=== PATIENT | female | born 2000 | race Hispanic/Latino ===

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

== ENCOUNTER → 2021-04-23 08:50 | Outpatient (CLI) | payer OTHER, MEDICAID, SELFPAY ==
[2021-04-23 09:20] LABS: COVID19 -Nasal RAPID POSITIVE (Negative)
== END ==
PROVIDERS: PCP Family Medicine; Visit Provider Nurse Practitioner Family
DX: U07.1 COVID-19 (principal); Z20.822 Contact with and (suspected) exposure to COVID-19
CPT/HCPCS: 87635

== ENCOUNTER 2021-05-02 03:53 | Emergency (ER) | payer OTHER, MEDICAID, SELFPAY ==
[2021-05-02] VITALS (9 sets, daily range): BP systolic 133–168; BP diastolic 74–108; PULSE 69–82; RESP 20–24; TEMP 36.6; O2SAT 95–98
--- NOTE | 2021-05-02 04:00 | DI.RAD.S_ITS ---
PROCEDURE: XR CHEST 1V INDICATIONS: shortness of breath, + covid TECHNIQUE: One view of the chest was acquired. COMPARISON: None. FINDINGS: Surgical changes and devices: None. Lungs and pleura: Lungs are clear. No pleural effusions or pneumothorax. Mediastinum: Mediastinal contours appear normal. Heart size is normal. Bones and chest wall: No suspicious bony lesions. Overlying soft tissues appear unremarkable. IMPRESSION: No acute cardiopulmonary disease process. Dictated by: Shy Cardoso MD, PhD on 05/02/2021 at 7:55 Approved by: Shy Cardoso MD, PhD on 05/02/2021 at 7:55
--- NOTE | 2021-05-02 04:20 | ED_ITS ---
HPI - SOB/Dyspnea General Chief Complaint: Upper Respiratory Symptoms Stated Complaint: trouble breathing Time Seen by Provider: 05/02/21 04:00 Source: patient Mode of arrival: Ambulatory Limitations: no limitations History of Present Illness HPI Narrative: This is a 21-year-old female comes emergency department with known COVID for approximately 2 weeks. Patient states she started feeling more short of breath in the last 24-48 hours. She has been afebrile. She has had a little bit of a cough but states she has really been doing this herself to try to open up her airways. She states it feels tight in her chest. She denies pain but does feel uncomfortable. She has been trying this it more upright overnight to see if that makes her feel better. Patient denies any active nausea or vomiting. No diarrhea constipation. She had some nasal congestion which is 1 of last symptoms to show up for her. She denies any new swelling in her extremities. She does have a Nexplanon in place and recently did a month trial of dextroamphetamine but completed this and has to follow-up with her primary care physician before she takes any additional. She is unsure if she had an asthma history as a child but states she did have an inhaler at some point. She has a family history with her father. No tobacco use but she does use marijuana. Patient is vaccinated she received her vaccines in September. Related Data Home Medications Medication Instructions Recorded Confirmed etonogestrel 68 mg subdermal SUBDERMAL 03/02/20 04/23/21 implant (Nexplanon) Previous Rx's Medication Instructions Recorded dextroamphetamine 10 mg tablet 10 mg PO DAILY #30 tab 04/01/21 prednisone 20 mg tablet 40 mg PO DAILY #6 tab 05/02/21 Allergies Allergy/AdvReac Type Severity Reaction Status Date / Time No Known Drug Allergies Allergy Verified 11/23/20 14:57 Review of Systems Review of Systems ROS Unobtainable: All systems reviewed & are unremarkable except as noted in HPI and below Patient History Medical History No significant medical problems Social History Smoking Status: Never smoker Smoking Status: Never smoker Exam Narrative Exam Narrative: GEN: well nourished, well appearing female, alert and oriented x 3, patient appears to be in mild distress. HEENT: Atraumatic, pupils are equal round reactive to light, extraocular movements are intact, positive for nasal congestion. HEART: Regular rate and rhythm without murmur, clicks, rubs. LUNGS:Lungs patient has bilateral expiratory and inspiratory wheeze, no rales, crackles, chest moves symmetrically, no tachypnea accessory muscle use. Patient speaks in full sentences. ABD:bowel sounds normal, soft, non-tender, no guarding, rebound, rigidity, no masses noted, no hepatosplenomegaly :No CVA tenderness MSCL: Non-tender, swelling bilateral lower extremities, full range of motion, n ormal gait NEURO:CN 2-12 intact, sensation normal SKIN: No rashes, erythema or other skin changes noted. Initial Vital Signs Initial Vital Signs: Vital Signs Temperature 97.9 F 05/02/21 04:00 Pulse Rate 70 05/02/21 04:00 Respiratory Rate 24 05/02/21 04:00 Blood Pressure 168/108 H 05/02/21 04:00 Pulse Oximetry 98 05/02/21 04:00 Course Orders Ordered: ED Orders 05/02/21 04:00 XR chest 1V Stat Discontinued Medications Albuterol (Albuterol Hfa Prepack) 1 box MISC SEEINSTR ONE Stop: 05/02/21 04:33 Last Admin: 05/02/21 04:56 Dose: 1 box Documented by: Prednisone (Prednisone 20 Mg Tablet) 60 mg PO NOW ONE Stop: 05/02/21 05:18 Last Admin: 05/02/21 05:22 Dose: 60 mg Documented by: Reevaluation(s) Reevaluation #1: Recheck after MDI inhaler was given. Patient does have improvement of aeration, her inspiratory wheeze has resolved, but not resolution of her expiratory wheeze. Patient states she feels much better. Time: 05:55 Vital Signs Vital signs: Vital Signs - 8 hr 05/02/21 04:00 05/02/21 04:14 05/02/21 04:21 Temperature 97.9 F Pulse Rate 70 78 74 Respiratory Rate 24 Blood Pressure 168/108 H 158/91 H Pulse Oximetry 98 95 98 05/02/21 04:30 05/02/21 04:31 05/02/21 04:56 Temperature Pulse Rate 82 69 72 Respiratory Rate 20 Blood Pressure 133/77 Pulse Oximetry 97 96 95 05/02/21 05:00 05/02/21 05:30 05/02/21 05:31 Temperature Pulse Rate 76 72 71 Respiratory Rate Blood Pressure 152/96 H 158/74 H Pulse Oximetry 97 97 96 MDM - SOB/Dyspnea Imaging Data Chest x-ray: Radiologist's Impression: No acute cardiopulmonary abnormality identified. [facility] Narrative Medical decision making narrative: This is a 21-year-old female who is and a 10- 14 day range of COVID infection with known positive test outside the facility. Patient started feeling more short of breath the last several days. A remote history of asthma or reactive airway as a child using albuterol. Patient states she has not used in many years. She is wheezy on exam. Her oxygen saturation is normal she is slightly hypertensive but not tachypneic. Chest x-ray negative patient was given albuterol MDI here and re-evaluated patient is much improved. Discussed with patient feels she may benefit from a short course of steroids in terms of reactive airway disease. She was discharged home with the albuterol MDI. She has a spacer in is a teaching from respiratory therapy as well. Return precautions discussed. All questions answered. Discharge Plan Departure Patient Disposition: Home Clinical Impression: COVID-19 virus infection, Reactive airway disease Instructions: DI for Reactive Airway Disease-Adult, DI for COVID-19 (Suspected or Confirmed ) Activity Restrictions/Additional Instructions: Your x-ray today is negative for pneumonia. You are wheezy on exam and likely have some reactive airway secondary to your COVID infection. You may use albuterol 4-8 puffs every 4 hours as needed. Steroids are not typically recommended with COVID infections if you have a normal oxygen level but it may be helpful to you. Take steroids daily until gone. A prescription was sent to [facility] in [place]. Please return for new or worsening shortness of breath, lightheadedness or passing out, chest pain or pressure, persistent vomiting, diaphoresis or sweatiness, new swelling in her extremities or other new or concerning symptoms. Prescriptions: New prednisone 20 mg tablet 40 mg PO DAILY Qty: 6 RF: 0 No Action Nexplanon 68 mg implant subdermal RF: 0 dextroamphetamine 10 mg tablet 10 mg PO DAILY Qty: 30 RF: 0 Referrals: Ana Sifuentes MD [Primary Care Provider] -
[2021-05-02] MEDS: ALBUTEROL HFA PREPACK 1 BOX MISC (04:56)
[2021-05-02] MEDS: predniSONE 20 MG TABLET 60 MG PO (05:22)
== END 2021-05-02 05:58 | disposition home or self-care (01) ==
PROVIDERS: Emergency Provider Emergency Medicine; PCP Family Medicine
DX: U07.1 COVID-19 (principal); J45.909 Unspecified asthma, uncomplicated
CPT/HCPCS: 71045; 94640; 99283

== ENCOUNTER → 2021-07-09 15:19 | Outpatient (CLI) | payer OTHER, MEDICAID, SELFPAY ==
--- NOTE | 2021-07-09 15:35 | DI.CT.S_ITS ---
PROCEDURE: CT SINUS SCREEN WO CON INDICATIONS: Other specified disorders of nose and nasal sinus TECHNIQUE: Noncontrast 3.0 mm axial images acquired from the frontal sinuses to the mid-sella, with coronal and sagittal reformats. For radiation dose reduction, the following was used: automated exposure control, adjustment of mA and/or kV according to patient size. BB marker is noted on the right cheek COMPARISON: None. FINDINGS: Image quality: Excellent. Maxillary Sinuses: Near complete opacification of the left maxillary sinus. Retention cysts are noted on the right. There is obstruction of the left ostiomeatal unit egress tract. The right OMU is clear. Ethmoid Air Cells: No bony remodeling or destruction. Sinuses are clear. Sphenoid Sinuses: No bony remodeling or destruction. Sinuses are clear. Frontal Sinuses: No bony remodeling or destruction. Sinuses are clear. Ostiomeatal Complexes: As above. No Jordi cells. Miscellaneous: Visualized intra-orbital contents are normal. No martina bullosa or paradoxical turbinate curvature. No nasal septal deviation. BB marker corresponds with an accessory parotid lobe. Small incidental intraparotid right-sided lymph node noted as well. IMPRESSION: 1. Debris and air-fluid level in the left maxillary sinus and may reflect acute sinusitis. Right maxillary sinus retention cysts noted. 2. Left ostiomeatal unit is obstructed as well. No osseous expansion or sclerosis. 3. BB marker on the right cheek corresponds with an accessory parotid lobe. Approved by: Radu Cabezas M.D. on 07/09/2021 at 16:24
== END ==
PROVIDERS: PCP Family Medicine; Referring Provider Otolaryngology; Visit Provider Otolaryngology
DX: J34.89 Other specified disorders of nose and nasal sinuses (principal); J34.1 Cyst and mucocele of nose and nasal sinus
CPT/HCPCS: 70486

== ENCOUNTER → 2021-11-28 08:13 | Outpatient (CLI) | payer OTHER, MEDICAID, SELFPAY ==
[2021-11-28 11:01] LABS: Hemoglobin A1C% w Est Avg Glu 5.3 % (4.0-6.0)
[2021-11-28 11:39] LABS: Testosterone 56.3 ng/dL (5.71-77.0)
[2021-11-29 07:36] LABS: Insulin Level Total 18.6 uIU/mL (2.6-24.9)
== END ==
PROVIDERS: PCP Family Medicine; Referring Provider Family Medicine; Visit Provider Family Medicine
DX: E28.2 Polycystic ovarian syndrome (principal)
CPT/HCPCS: 36415; 83036; 83498; 83525; 84403

== ENCOUNTER → 2022-03-27 08:19 | Outpatient (CLI) | payer OTHER, MEDICAID, SELFPAY ==
--- NOTE | 2022-03-27 08:21 | DI.CT.S_ITS ---
PROCEDURE: CT SINUS SCREEN WO CON INDICATIONS: Chronic pansinusitis TECHNIQUE: Noncontrast 3.0 mm axial images acquired from the frontal sinuses to the mid-sella, with coronal and sagittal reformats. For radiation dose reduction, the following was used: automated exposure control, adjustment of mA and/or kV according to patient size. COMPARISON: [facility], CT, CT SINUS SCREEN WO CON, 07/09/2021, 15:30. FINDINGS: Image quality: Excellent. Sinuses: Mucous retention cyst versus polyps are present within the maxillary sinuses bilaterally. Mild mucosal thickening is present within the left maxillary sinus as well as minimally within the ethmoid air cells as well as left sphenoid sinus. No fluid levels are identified. Ostiomeatal Complexes: Ostiomeatal complexes are patent. However, there is leftward narrowing secondary to septal deviation. Miscellaneous: Visualized intra-orbital contents are normal. No martina bullosa or paradoxical turbinate curvature. Leftward nasal septal deviation with septal spur there is atrophy of the middle turbinates as well as asymmetric hypertrophy of the left inferior turbinate.. IMPRESSION: Minimal to mild scattered mucosal thickening with mucous retention cyst versus polyps. No fluid levels. Prominent left nasal septal deviation causing narrowing of the left ostiomeatal complex. Dictated by: Bee Ramos M.D. on 03/27/2022 at 11:54 Approved by: Bee Ramos M.D. on 03/27/2022 at 12:03
== END ==
PROVIDERS: PCP Family Medicine; Referring Provider Otolaryngology; Visit Provider Otolaryngology
DX: J32.4 Chronic pansinusitis (principal); J34.2 Deviated nasal septum
CPT/HCPCS: 70486

== ENCOUNTER → 2022-04-15 10:58 | Outpatient (CLI) | payer OTHER, MEDICAID, SELFPAY ==
--- NOTE | 2022-04-15 11:03 | DI.RAD.S_ITS ---
PROCEDURE: XR ANKLE RT MIN 3V INDICATIONS: right ankle injury - tender lateral malleolus TECHNIQUE: 3 views of the ankle were acquired. COMPARISON: None. FINDINGS: Bones: No fractures or dislocations. Ankle mortise is normally aligned. No suspicious bony lesions. Soft tissues: No tibiotalar joint effusion. Achilles tendon appears normal. IMPRESSION: No visualized acute fracture or dislocation. However, if clinical concern and/or pain persist, short interval imaging followup in 7-10 days is recommended, as occult injury cannot be definitively excluded. Dictated by: Bee Ramos M.D. on 04/15/2022 at 11:38 Approved by: Bee Ramos M.D. on 04/15/2022 at 11:39
== END ==
PROVIDERS: PCP Family Medicine; Referring Provider Registered Nurse; Visit Provider Registered Nurse
DX: M25.571 Pain in right ankle and joints of right foot (principal)
CPT/HCPCS: 73610

== ENCOUNTER → 2022-07-29 13:48 | Outpatient (ROUT) | payer OTHER, MEDICAID, SELFPAY ==
[2022-07-29 15:01] LABS: COVID-19 CEPHEID PCR (VTM/NP) Negative (Negative)
== END ==
PROVIDERS: PCP Family Medicine; Visit Provider Otolaryngology
DX: Z20.822 Contact with and (suspected) exposure to COVID-19 (principal)
CPT/HCPCS: U0003; U0005

== ENCOUNTER 2022-07-31 09:59 | Day surgery (SDC) | payer OTHER, MEDICAID, SELFPAY ==
[2022-07-29 15:21] VITALS: BMI 35.9
[2022-07-31] VITALS (11 sets, daily range): BP systolic 127–174; BP diastolic 82–117; PULSE 71–113; RESP 14–86; TEMP 35.9–36.6; O2SAT 91–98; BMI 35.9
--- NOTE | 2022-07-31 10:34 | PM.PREOP ---
Pre-operative Note Interval Note History & Physical reviewed/Exam performed by Physician: Yes Changes to H&P: No
--- NOTE | 2022-07-31 10:35 | PM.HP.1 ---
History of Present Illness History of Present Illness Date Patient Seen: 07/31/22 Time Patient Seen: 10:35 Chief complaint: SEPTOPLASTY Narrative: 22-year-old female last seen in clinic 04/23/2022 for chronic sinusitis septal deviation nasal obstruction turbinate hypertrophy and RONNA, presents for septoplasty, turbinate reduction, and anterior endoscopic sinus surgery. No interval health changes, she wishes to proceed. 3+ left septal deviation including mid to posterior severe spur. Patient History Medical History Anxiety Attention deficit hyperactivity disorder (ADHD) Chronic pansinusitis COVID-19 virus infection (04/23/21) HTN (hypertension) Nasal obstruction Nasal septal deviation Nasal turbinate hypertrophy No significant medical problems Obstructive sleep apnea (adult) (pediatric) RONNA (obstructive sleep apnea) Other headache syndrome Family & Social History Tobacco & Substance use: Smoking Status Never smoker Substance Use Type marijuana Meds Home Medications and Allergies Home Medications Medication Instructions Recorded Confirmed Type norethindrone acetate 1 mg-ethinyl 1 tab PO DAILY #63 tabs 05/30/22 07/31/22 Rx estradiol 20 mcg tablet (Loestrin) albuterol sulfate 90 mcg/actuation 2 puff inhalation Q4-6H PRN 06/26/22 07/31/22 Rx aerosol inhaler (ProAir HFA) shortness of breath or wheezing #8.5 grams lisdexamfetamine 40 mg capsule 40 mg PO QAM #30 caps 06/27/22 07/31/22 Rx Allergies Allergy/AdvReac Type Severity Reaction Status Date / Time No Known Drug Allergies Allergy Verified 05/30/22 11:40 Review of Systems Review of Systems Narrative: Negative except as listed in the HPI Exam Narrative Exam Narrative: Well-developed female with elevated BMI, heart regular rate and rhythm without murmur, lungs clear to auscultation bilaterally Assessment & Plan Assessment & Plan narrative: Assessment: Chronic sinusitis, septal deviation, nasal airway obstruction, inferior turbinate hypertrophy, mild RONNA Plan: Following discussion of the material risks benefits complications and alternatives, the patient elected to proceed with the above surgeries as outpatient. Time Spent With Patient Critical Care time: I spent a total of [] minutes of critical care time on this patient's care today; this time is exclusive of procedural time.
--- NOTE | 2022-07-31 10:37 | P.OP_ITS ---
Operative Date/Time/Diagnoses Date of procedure: 07/31/22 Time of procedure: 13:12 Pre-op diagnosis: Chronic sinusitis, septal deviation, nasal airway obstruction, inferior turbinate hypertrophy, RONNA Post-op diagnosis: same Procedure & Clinicians Procedure: 1. Bilateral endoscopic maxillary antrostomy 2. Bilateral endoscopic anterior ethmoidectomy 3. Septoplasty 4. Bilateral inferior turbinate reduction via intra mural cautery Same procedure as scheduled: Yes Indications: 22-year-old female with the above diagnoses incompletely managed with medical therapy presents for the above procedures. Following discussion of the material risks benefits complications and alternatives, she elected to proceed. Surgeon: Rik Rushing Click Yes if Unassisted: Yes Anesthesia Type: General and Local Operative Notes Findings: 3+ left septal deviation including large septal spur, isolated LEFT flap perforation in that area, RIGHT flap intact. Partial bilateral middle turbinate resection to improve airway and decrease risk of lateralization. Some thick mucus RIGHT maxillary, bilateral atypical anatomy with very lateral antrostomies, difficult access even with the 30degree scope. Estimated Blood Loss (mL): 110 Procedure in detail: Following identification and confirmation of consent as well as preoperative Afrin nasal spray, the patient was brought to the operating room suite and placed in the supine position. General endotracheal anesthesia was administered. I infiltrated the septum widely bilaterally with 1% lidocaine 1 100,000 epinephrine followed by temporary packing with cotton with Afrin and 4% lidocaine. Following sterile prep and drape, the packing was removed and I performed a right manpreet-transfixion incision, elevated the right mucoperichondrial and mucoperiosteal flap. I disarticulated near the bony/cartilaginous junction and elevated the left mucoperiosteal flap. Deviated portions of the perpendicular plate of the ethmoid and vomer were resected. The residual quadrilateral cartilage was further straightened by partially trimming it inferiorly as well as reducing the maxillary crest. A 2 mm strip of cartilage paralleling the residual 1 cm dorsal and caudal strut was resected to further straighten the quadrilateral cartilage. The hemitransfixion incision was closed with interrupted 5 0 chromic followed by a running 4 0 plain gut mattress suture to reapproximate the septal flaps. The head of each inferior turbinate had been previously infiltrated with additional local anesthetic and a 25 gauge spinal needle was used to impale the length of the turbinate, with cautery on a setting of 15 activated on slow withdrawal over 2 passes each side. The turbinates were then outfractured. Under endoscopic guidance the posterior and anterior superior insertion of each middle turbinate was then infiltrated with additional local anesthetic via spinal needle, and each middle meatus was packed with epi 1:1000 small pledgets for up to 10min. Beginning on the left side, the middle turbinate was slightly medialized and the uncinate process was identified with uncinectomy performed via the backbiting forceps and the microdebrider, difficult access as above. The natural os of the maxillary sinus was eventually identified and enlarged posteriorly and inferiorly with forceps and the microdebrider. Anterior ethmoidectomy was performed by removing the ethmoid bulla with the microdebrider. This procedure was repeated on the right side with identical findings. Each middle turbinate was partially resected with turbinate scissors, forceps, with cautery of the free residual edges with suction cautery on a setting of 10. At case completion, 20/1000th of an inch silastic splints were placed bilaterally, sutured anteriorly with a single 4 0 nylon. The procedure completed, sponge and needle counts were correct and the patient was extubated in the operating room and taken to recovery room in stable condition without known complication. Complications: none Post-operative Condition: stable Disposition: same day surgery Plan for aftercare: Nasal saline every hour while awake, begin irrigations t.i.d. tomorrow. Polysporin to the nostrils at all times, Tylenol alternating with Advil for pain control, oxycodone for breakthrough pain. Elevate head of bed, no nose blowing, no straining for 2 weeks. Ice directly under the nose on the upper lip has tolerated 24-48 hours at a minimum. Follow-up in 1 week for nasal splint removal.
[2022-07-31] MEDS: LACTATED RINGERS 1,000 ML 42 ML IV (10:40)
[2022-07-31] MEDS: OXYMETAZOLINE NASAL SPRAY 15 ML 2 SPRAYS NASAL ×2 (10:53→11:31)
--- NOTE | 2022-07-31 11:25 | SUR.OPER ---
Supine on padded OR bed, head on pillow, arms padded and tucked at sides, legs uncrossed, safety belt at thigh, tape over blanket over lower legs .
[2022-07-31] MEDS: EPINEPHrine 1 MG/ML 3 MG TOP (11:38)
[2022-07-31] MEDS: LIDOCAINE 2% W/EPI INJ 20 ML INJ (11:38)
[2022-07-31] MEDS: BACITRACIN OINT 0.9 GM PCKT 1 APPLIC TOP (11:39)
[2022-07-31] MEDS: ACETAMINOPHEN IV 1,000 MG/100 ML VIAL 400 MG IV (11:42)
[2022-07-31] MEDS: LIDOCAINE 4% SOLN 50 ML 20 ML TOP (11:45)
[2022-07-31] MEDS: HYDROMORPHONE 2 MG INJ IV (13:57)
[2022-07-31] MEDS: ONDANSETRON 4 MG/2 ML INJ IV ×2 (14:01→15:24)
[2022-07-31] MEDS: OXYCODONE IR 5 MG TABLET PO ×2 (14:30→15:23)
== END 2022-07-31 15:55 | disposition home or self-care (01) ==
PROVIDERS: PCP Family Medicine; Referring Provider Otolaryngology; Visit Provider Otolaryngology
PROC: (CPT 30520; principal; 2022-07-31 11:00)
PROC: (CPT 31231; 2022-07-31 11:00)
DX: J32.4 Chronic pansinusitis (principal); J34.2 Deviated nasal septum; J34.3 Hypertrophy of nasal turbinates; G47.33 Obstructive sleep apnea (adult) (pediatric); J98.8 Other specified respiratory disorders
CPT/HCPCS: 31254; 31256; 30520; 30802; A9270; J0131; J0171; J1100; J1170; J2250; J2405; J2704; J3010

== ENCOUNTER → 2022-09-01 17:30 | Outpatient (CLI) | payer OTHER, MEDICAID, SELFPAY | PROVIDERS: PCP Family Medicine; Visit Provider Nurse Practitioner Family | DX: J02.9 Acute pharyngitis, unspecified (principal) | CPT/HCPCS: 87070; 87077; 87147 ==

== ENCOUNTER 2022-09-25 19:44 | Emergency (ER) | payer OTHER, MEDICAID, SELFPAY ==
[2022-09-25 19:50] VITALS: BP 157/89; PULSE 98; RESP 18; TEMP 36.8; O2SAT 98; BMI 36.0
[2022-09-25 22:20] VITALS: PULSE 84; O2SAT 97
[2022-09-25 22:30] VITALS: BP 145/87; PULSE 81; O2SAT 97
[2022-09-25 22:45] VITALS: BP 132/80; PULSE 80; O2SAT 97
--- NOTE | 2022-09-25 22:56 | ED_ITS ---
HPI - URI/Sore Throat General Chief Complaint: Upper Respiratory Symptoms Stated Complaint: Swollen tonsils Time Seen by Provider: 09/25/22 19:45 Source: patient Mode of arrival: Ambulatory History of Present Illness HPI Narrative: 22-year-old female nonsmoker with history of hypertension and sleep apnea as well as ADHD presents with a chief complaint of tonsillar swelling. She states that she had rather classic symptoms of sore throat and strep a few weeks ago including fever, sore throat, swollen tonsils, with redness and exudate. She was diagnosed with strep C and had been on antibiotics. She states that she no longer has throat pain or fever but that her tonsils continued to be swollen. She has a rather impressive amount of runny nose, nasal secretions. She denies any trouble swallowing or breathing. She is most concerned that her tonsils are still swollen. She is not been taking any [id number] medications. She denies any chest pain or shortness of breath. She is had no nausea, vomiting or diarrhea Related Data Previous Rx's Medication Instructions Recorded norethindrone acetate 1 mg-ethinyl 1 tab PO DAILY #63 tabs 05/30/22 estradiol 20 mcg tablet (Loestrin) albuterol sulfate 90 mcg/actuation 2 puff inhalation Q4-6H PRN 09/12/22 aerosol inhaler (ProAir HFA) shortness of breath or wheezing #8.5 grams lisdexamfetamine 40 mg capsule 40 mg PO QAM #30 caps 09/12/22 sertraline 25 mg tablet 25 mg PO DAILY #30 tabs 09/12/22 Allergies Allergy/AdvReac Type Severity Reaction Status Date / Time No Known Drug Allergies Allergy Verified 09/25/22 20:09 Review of Systems Review of Systems Narrative: GENERAL: See HPI HEENT: See HPI RESPIRATORY: Denies dyspnea, cough, wheezing, hemoptysis, sputum. CARDIOVASCULAR: Denies chest pain, palpitations, orthopnea, edema, GASTROINTESTINAL: Denies nausea, vomiting, abdominal pain, diarrhea, constipation, melena. : Denies dysuria, frequency, incontinence, hematuria, urinary retention. MUSCULOSKELETAL: denies weakness, joint pain, or bony pain SKIN: Denies rash, skin lesions, or other NEUROLOGIC: Denies weakness, headache, numbness, change in speech, confusion, seizures, incoordination. PSYCHIATRIC: No concerning psychosocial issues. 12 point review of systems is negative except for those stated above Patient History Medical History Anxiety Attention deficit hyperactivity disorder (ADHD) Chronic pansinusitis COVID-19 virus infection (04/23/21) HTN (hypertension) Nasal obstruction Nasal septal deviation Nasal turbinate hypertrophy No significant medical problems Obstructive sleep apnea (adult) (pediatric) RONNA (obstructive sleep apnea) Other headache syndrome Social History Smoking Status: Never smoker alcohol intake: current Smoking Status: Never smoker alcohol intake frequency: holidays/special occasions only Substance Use Type: marijuana Exam Narrative Exam Narrative: GENERAL: [22] year old patient appears stated age. Well-developed patient, in mild distress. HEAD: Atraumatic. Normocephalic. EYES: Pupils equal round and reactive. Extraocular motions intact. No scleral icterus. No injection or drainage. ENT: Nose without bleeding, purulent drainage. Clear nasal drainage, clear post nasal drip. Throat without erythema, or exudate. Tonsils are large, but not touching. Airway patent. NECK: Trachea midline. Non tender CARDIOVASCULAR: Regular rate and rhythm without murmurs, gallops, or rubs. RESPIRATORY: Clear to auscultation. Breath sounds equal bilaterally. No wheezes, rales, or rhonchi. GASTROINTESTINAL: Abdomen soft, non-tender, nondistended. EXTREMITIES: No edema or joint tenderness. BACK: Nontender without deformity or crepitance. No flank tenderness. NEURO: AOx3. SKIN: No rash or erythema of visible areas Initial Vital Signs Initial Vital Signs: Vital Signs Temperature 98.3 F 09/25/22 19:50 Pulse Rate 98 H 09/25/22 19:50 Respiratory Rate 18 09/25/22 19:50 Blood Pressure 157/89 H 09/25/22 19:50 Pulse Oximetry 98 09/25/22 19:50 Oxygen Delivery Method Room Air 09/25/22 19:50 Course Orders Ordered: ED Orders 09/25/22 20:20 Throat Culture Stat Discontinued Medications Dexamethasone (Dexamethasone 10 Mg/Ml Vial) 10 mg PO NOW ONE Stop: 09/25/22 22:58 Last Admin: 09/25/22 23:03 Dose: 10 mg Documented By: QING Vital Signs Vital signs: Vital Signs - 8 hr 09/25/22 19:50 09/25/22 22:20 09/25/22 22:30 Temperature 98.3 F Pulse Rate 98 H 84 Respiratory Rate 18 Blood Pressure 157/89 H 145/87 H Pulse Oximetry 98 97 Oxygen Delivery Method Room Air 09/25/22 22:30 09/25/22 22:45 09/25/22 22:45 Temperature Pulse Rate 81 80 Respiratory Rate Blood Pressure 132/80 Pulse Oximetry 97 97 Oxygen Delivery Method 09/25/22 23:00 09/25/22 23:00 09/25/22 23:05 Temperature Pulse Rate 85 88 Respiratory Rate Blood Pressure 136/90 Pulse Oximetry 97 98 Oxygen Delivery Method 09/25/22 23:05 Temperature Pulse Rate Respiratory Rate Blood Pressure 137/86 Pulse Oximetry Oxygen Delivery Method MDM - URI/Sore Throat Lab Data Labs: Point of Care Testing Rapid Strep A Negative MDM Narrative Medical decision making narrative: [22] year old patient presents with tonsillar swelling in the absence of fever Multiple etiologies for patient's symptoms considered including, but not limited to: [Strep, postnasal drip, viral etiology versus other] Prior Charts reviewed in our EMR Primary Historian: patient Labs reviewed and interpreted by myself: Rapid strep negative, culture pending Patient's symptoms improved over duration of stay with above-stated therapies. Findings and discharge diagnosis discussed with patient/family followed by v erbalization of understanding Return precautions discussed with patient/family whom verbalize understanding of diagnosis and plan Discharge Plan Departure Patient Disposition: Home Clinical Impression: Pharyngitis Instructions: Sore Throat Activity Restrictions/Additional Instructions: *You have been diagnosed with [sore throat. As we discussed your history and physical exam as well as rapid strep test are reassuring and there is no evidence of a positive test. There is a throat culture pending and should that demonstrate findings that would indicate the need for antibiotics we will call you. Otherwise please consider the use [id number] cough, cold and flu medications, particularly with antihistamines to dry the secretions that are likely causing your symptoms *What to do: *Please continue to take your regular medications as directed. [ ] New medication prescriptions sent to your pharmacy: [ ] [ ] New medication written as a paper prescription [ ] No new medications given *Please follow up with your primary care provider in 2-3 days, call for an appointment. Let them know you were seen in the Emergency Department and that we ask that you be seen in follow up. We will electronically transmit a record of today's note if your PCP is in our system *If you do not have a primary care provider please contact the [facility] Resource line at [phone]. They will ask some questions about your medical history and help get you set up with a doctor in the community. *Return to Emergency Department if you should have any new, worsening or concerning symptoms, such as [fever greater than 101 F, shaking chills, worsening pain, persistent vomiting or other bothersome symptoms] Prescriptions: No Action lisdexamfetamine 40 mg capsule 40 mg PO QAM Qty: 30 0RF sertraline 25 mg tablet 25 mg PO DAILY Qty: 30 2RF albuterol sulfate [ProAir HFA] 90 mcg/actuation HFA aerosol inhaler 2 puff inhalation Q4-6H PRN (Reason: shortness of breath or wheezing) Qty: 8.5 3RF norethindrone ac-eth estradiol [Loestrin 08/08 (21)] 1-20 mg-mcg tablet 1 tab PO DAILY Qty: 63 3RF Referrals: Ana Sifuentes MD [Primary Care Provider] - Stand Alone Forms: Patient Portal/API
[2022-09-25 23:00] VITALS: BP 136/90; PULSE 85; O2SAT 97
[2022-09-25] MEDS: DEXAMETHASONE 10 MG/ML VIAL PO (23:03)
[2022-09-25 23:05] VITALS: BP 137/86; PULSE 88; O2SAT 98
== END 2022-09-25 23:07 | disposition home or self-care (01) ==
PROVIDERS: Emergency Provider Emergency Medicine; PCP Family Medicine
DX: J02.9 Acute pharyngitis, unspecified (principal)
CPT/HCPCS: 87070; 87147; 87880; 99283; J1100

== ENCOUNTER → 2022-10-31 14:18 | Outpatient (CLI) | payer OTHER, MEDICAID, SELFPAY | PROVIDERS: PCP Family Medicine; Visit Provider Family Medicine | DX: J35.1 Hypertrophy of tonsils (principal) | CPT/HCPCS: 87070 ==

== ENCOUNTER 2022-12-18 19:00 | Emergency (ER) | payer OTHER, MEDICAID, SELFPAY ==
[2022-12-18] VITALS (10 sets, daily range): BP systolic 132–159; BP diastolic 89–107; PULSE 75–99; RESP 16–20; TEMP 36.6; O2SAT 95–100
--- NOTE | 2022-12-18 20:15 | DI.RAD.S_ITS ---
PROCEDURE: XR CHEST 1V INDICATIONS: SOB TECHNIQUE: One view of the chest was acquired. COMPARISON: [facility], CR, XR CHEST 1V, 05/02/2021, 4:08. FINDINGS: Surgical changes and devices: None. Lungs and pleura: Lungs are clear. No pleural effusions or pneumothorax. Mediastinum: Mediastinal contours appear normal. Heart size is normal. Bones and chest wall: No suspicious bony lesions. Overlying soft tissues appear unremarkable. IMPRESSION: 1. No acute cardiopulmonary disease. Dictated by: Moody Santiago M.D. on 12/18/2022 at 21:39 Approved by: Moody Santiago M.D. on 12/18/2022 at 21:39
--- NOTE | 2022-12-18 20:49 | ED.GENADULT ---
HPI - General Adult General Chief complaint: Upper Respiratory Symptoms Stated complaint: short of breath for 3 days Time Seen by Provider: 12/18/22 20:14 Source: patient Mode of arrival: Ambulatory History of Present Illness HPI narrative: Patient is a 22-year-old female who is here for evaluation of 3 days of what she describes as shortness of breath. She is also wheezing. She does have inhalers at home which she states she is been using very frequently. She states that over the past couple years every couple months she goes through episodes where she has quite a bit wheezing and uses her inhaler on a regular basis. She is been on steroids in the past. She states she does use her albuterol inhaler multiple times a day. No fevers. No chest pain. Related Data Previous Rx's Medication Instructions Recorded norethindrone acetate 1 mg-ethinyl 1 tab PO DAILY #63 tabs 05/30/22 estradiol 20 mcg tablet (Loestrin) sertraline 25 mg tablet 25 mg PO DAILY #30 tabs 09/12/22 amoxicillin 500 mg capsule 500 mg PO BID #14 caps 09/29/22 albuterol sulfate 90 mcg/actuation 2 puff inhalation Q4-6H PRN 12/01/22 aerosol inhaler (ProAir HFA) shortness of breath or wheezing #8.5 grams lisdexamfetamine 50 mg capsule 50 mg PO QAM #30 caps 12/09/22 fluticasone 250 mcg-salmeterol 50 1 inh inhalation BID #60 ea 12/18/22 mcg/dose blistr powdr for inhalation (Advair Diskus) prednisone 20 mg tablet 20 mg PO DAILY 7 days #7 tabs 12/18/22 Allergies Allergy/AdvReac Type Severity Reaction Status Date / Time No Known Drug Allergies Allergy Verified 11/05/22 11:16 Review of Systems Constitutional Constitutional: Reports system reviewed and no additional complaints, except as documented Cardiovascular Cardiovascular: Reports system reviewed and no additional complaints, except as documented Respiratory Respiratory: Reports system reviewed and no additional complaints, except as documented Integumentary/Breasts Skin/Breast: Reports system reviewed and no additional complaints, except as documented Neurologic Neurologic: Reports system reviewed and no additional complaints, except as documented Hematologic/Lymphatic On Anticoagulants: No Patient History Medical History Anxiety Attention deficit hyperactivity disorder (ADHD) Chronic pansinusitis COVID-19 virus infection (04/23/21) HTN (hypertension) Nasal obstruction Nasal septal deviation Nasal turbinate hypertrophy No significant medical problems Obstructive sleep apnea (adult) (pediatric) RONNA (obstructive sleep apnea) Other headache syndrome Social History Smoking Status: Never smoker alcohol intake: current Smoking Status: Never smoker alcohol intake frequency: holidays/special occasions only Substance Use Type: marijuana Exam Initial Vital Signs Initial Vital Signs: Vital Signs Temperature 97.8 F 12/18/22 19:06 Pulse Rate 87 12/18/22 19:06 Respiratory Rate 16 12/18/22 19:06 Blood Pressure 159/107 H 12/18/22 19:06 Pulse Oximetry 98 12/18/22 19:06 Oxygen Delivery Method Room Air 12/18/22 19:06 HENMT Head: normal to inspection and normocephalic Resp Effort & Inspection: normal respiratory effort Auscultation: wheezes Cardio Rate: regular rate Skin General: no rashes or lesions noted Course Orders Ordered: ED Orders 12/18/22 20:15 XR chest 1V Stat Discontinued Medications Albuterol (Albuterol 2.5 Mg/3 Ml Neb (Adult)) 2.5 mg INH NOW ONE Stop: 12/18/22 20:50 Last Admin: 12/18/22 21:03 Dose: 2.5 mg Documented By: MR Albuterol/Ipratropium (Albuterol/Ipratropium 3 Ml Ampul) 3 ml INH Q20M [facility] Stop: 12/18/22 22:11 Last Admin: 12/18/22 22:24 Dose: 3 ml Documented By: Admin: 12/18/22 22:01 Dose: 3 ml Documented By: Admin: 12/18/22 21:40 Dose: 3 ml Documented By: Prednisone (Prednisone 20 Mg Tablet) 20 mg PO NOW ONE Stop: 12/18/22 20:50 Last Admin: 12/18/22 20:58 Dose: 20 mg Documented By: SHARYN Vital Signs Vital signs: Vital Signs - 8 hr 12/18/22 20:30 12/18/22 21:00 12/18/22 21:30 Pulse Rate 90 86 75 Respiratory Rate Blood Pressure Pulse Oximetry 96 96 98 Oxygen Delivery Method Room Air Room Air 12/18/22 22:00 12/18/22 22:30 12/18/22 23:00 Pulse Rate 99 H 97 H 97 H Respiratory Rate Blood Pressure Pulse Oximetry 97 100 97 Oxygen Delivery Method Room Air Room Air Room Air 12/18/22 23:17 Pulse Rate 95 H Respiratory Rate 20 Blood Pressure 147/89 H Pulse Oximetry 97 Oxygen Delivery Method Room Air Medical Decision Making Imaging Data Chest x-ray: Radiologist's Impression: PROCEDURE:? XR CHEST 1V ? INDICATIONS:? SOB ? TECHNIQUE:? One view of the chest was acquired.? ? COMPARISON:? [facility], , XR CHEST 1V, 05/02/2021, 4:08. ? FINDINGS:? ? Surgical changes and devices:? None.? ? Lungs and pleura:? Lungs are clear.? No pleural effusions or pneumothorax.? ? Mediastinum:? Mediastinal contours appear normal.? Heart size is normal.? ? Bones and chest wall:? No suspicious bony lesions.? Overlying soft tissues appear unremarkable.? ? IMPRESSION:? ? 1.? No acute cardiopulmonary disease. MDM Narrative Medical decision making narrative: Patient did have diffuse wheezing upon arrival but after nebulizer treatment she felt better and the wheezing improved. Her chest x-ray shows no signs of pneumonia. She absolutely has been using her albuterol inhaler more than what is intended. Has been using it more than 5 times a day. This has been going on for months now. I advised that she talk with her primary doctor about this. We will put her on steroids for the next couple days. Will start her on Advair as this may help her to use the albuterol less off it. There was no indication for antibiotics. She was given return precautions. She expressed understanding and agreement. Discharge Plan Departure Patient Disposition: Home Clinical Impression: Reactive airway disease with wheezing Instructions: DI for Reactive Airway Disease-Adult Activity Restrictions/Additional Instructions: I do recommend that you keep your scheduled appointment with your primary doctor and discuss any potential further evaluation to include pulmonary function testing. Return to the emergency department for new or worsening symptoms. Prescriptions: New prednisone 20 mg tablet 20 mg PO DAILY 7 Days Qty: 7 0RF fluticasone propion-salmeterol [Advair Diskus] 250-50 mcg/dose blister with device 1 inh inhalation BID Qty: 60 0RF No Action sertraline 25 mg tablet 25 mg PO DAILY Qty: 30 2RF norethindrone ac-eth estradiol [Loestrin 08/08 (21)] 1-20 mg-mcg tablet 1 tab PO DAILY Qty: 63 3RF albuterol sulfate [ProAir HFA] 90 mcg/actuation HFA aerosol inhaler 2 puff inhalation Q4-6H PRN (Reason: shortness of breath or wheezing) Qty: 8.5 3RF lisdexamfetamine 50 mg capsule 50 mg PO QAM Qty: 30 0RF amoxicillin 500 mg capsule 500 mg PO BID Qty: 14 0RF Referrals: Ana Sifuentes MD [Primary Care Provider] - Stand Alone Forms: Patient Portal/API
[2022-12-18] MEDS: predniSONE 20 MG TABLET PO (20:58)
[2022-12-18] MEDS: ALBUTEROL 2.5 MG/3 ML NEB (ADULT) INH (21:03)
[2022-12-18] MEDS: ALBUTEROL/IPRATROPIUM 3 ML AMPUL INH ×3 (21:40→22:24)
== END 2022-12-18 23:18 | disposition home or self-care (01) ==
PROVIDERS: Emergency Provider Emergency Medicine; PCP Family Medicine
DX: J45.909 Unspecified asthma, uncomplicated (principal)
CPT/HCPCS: 71045; 94640; 99283; J7613

== ENCOUNTER → 2023-01-06 11:20 | Outpatient (CLI) | payer OTHER, MEDICAID, SELFPAY ==
--- NOTE | 2023-02-04 10:21 | P.PFT.S_ITS ---
Pulmonary Function Test Referral & Results Date Patient Seen: 01/06/23 Results: The?spirometry?demonstrates?an?FVC?of?4.39?L?which?is?112%?of?predicted. The?FEV1?was?measured?at?3.60?L?which?is?106%?of?predicted. The?FEV1/FVC?ratio?was?82?which?is?95%?of?predicted. Following?the?admi nistration?of?bronchodilator?there?was?a?39%?improvement?in?FEF?25-75%. Lung?volumes?show?an?SVC?of?4.41?L?which?is?112%?of?predicted. The?diffusing?capacity?was?measured?at?28.23?which?is?110%?of?predicted. The?maximum?voluntary?ventilation?was?normal Interpretation: This?study?demonstrates?normal?pulmonary?function
--- NOTE | 2023-02-04 10:21 | PM.PFT.1 ---
Pulmonary Function Test Referral & Results Date Patient Seen: 01/06/23 Results: The?spirometry?demonstrates?an?FVC?of?4.39?L?which?is?112%?of?predicted. The?FEV1?was?measured?at?3.60?L?which?is?106%?of?predicted. The?FEV1/FVC?ratio?was?82?which?is?95%?of?predicted. Following?the?administration?of?bronchodilator?there?was?a?39%?improvement?in?FEF?25-75%. Lung?volumes?show?an?SVC?of?4.41?L?which?is?112%?of?predicted. The?diffusing?capacity?was?measured?at?28.23?which?is?110%?of?predicted. The?maximum?voluntary?ventilation?was?normal Interpretation: This?study?demonstrates?normal?pulmonary?function
== END ==
PROVIDERS: PCP Family Medicine; Referring Provider Family Medicine; Visit Provider Family Medicine
DX: J45.909 Unspecified asthma, uncomplicated (principal)
CPT/HCPCS: 94060; 94726; 94729

== ENCOUNTER 2023-07-02 09:58 | Day surgery (SDC) | payer OTHER, SELFPAY ==
[2023-06-30 08:22] VITALS: BMI 37.5
[2023-07-02 10:33] VITALS: BMI 37.5
--- NOTE | 2023-07-02 10:40 | P.HP_ITS ---
History of Present Illness History of Present Illness Date Patient Seen: 07/02/23 Chief complaint: Tonsillectomy w/poss adenoidectomy Narrative: 23-year-old female last seen in clinic 03/05/2023 presents with persistent intermittent throat pain and respiratory obstruction, wants to proceed with tonsillectomy and possible adenoidectomy. No interval health changes. [facility] Medical History Chronic tonsillitis Other headache syndrome Nasal turbinate hypertrophy Nasal obstruction Nasal septal deviation Chronic pansinusitis HTN (hypertension) Anxiety RONNA (obstructive sleep apnea) COVID-19 virus infection (04/23/21) Obstructive sleep apnea (adult) (pediatric) Attention deficit hyperactivity disorder (ADHD) No significant medical problems Surgical History Hx of appendectomy Hx of nasal septoplasty (07/31/22) Social History Smoking Status: Never smoker alcohol intake: current Meds Home Medications and Allergies Home Medications Medication Instructions Recorded Confirmed Type norethindrone acetate 1 mg-ethinyl 1 tab PO DAILY #63 tabs 05/30/22 07/02/23 Rx estradiol 20 mcg tablet (Loestrin) fluticasone 250 mcg-salmeterol 50 1 inh inhalation BID #60 ea 12/23/22 07/02/23 Rx mcg/dose blistr powdr for inhalation (Advair Diskus) albuterol sulfate 90 mcg/actuation 2 puff inhalation Q4-6H PRN 05/14/23 07/02/23 Rx aerosol inhaler (ProAir HFA) shortness of breath or wheezing #8.5 grams lisdexamfetamine 50 mg capsule 50 mg PO QAM 07/02/23 07/02/23 History (Vyvanse) Allergies Allergy/AdvReac Type Severity Reaction Status Date / Time No Known Drug Allergies Allergy Verified 07/02/23 10:30 Review of Systems Review of Systems Narrative: Negative except as listed in the HPI Exam Narrative Exam Narrative: Well-developed well-nourished, heart regular rate and rhythm without murmur, lungs clear to auscultation bilaterally Assessment & Plan Assessment & Plan narrative: Assessment: Chronic tonsillitis, upper airway obstruction secondary to tonsillar hypertrophy, RONNA, throat pain Plan: Following discussion of the material risks benefits complications and alternatives, the patient elected to proceed.
--- NOTE | 2023-07-02 10:40 | PM.PREOP ---
Pre-operative Note Interval Note History & Physical reviewed/Exam performed by Physician: Yes Changes to H&P: No
--- NOTE | 2023-07-02 10:42 | PM.OP.1 ---
Operative Date/Time/Diagnoses Date of procedure: 07/02/23 Time of procedure: 11:26 Pre-op diagnosis: Chronic tonsillitis, upper airway obstruction secondary to tonsillar hypertrophy, RONNA, throat pain Post-op diagnosis: same (Mild adenoid hypertrophy) Procedure & Clinicians Procedure: Adenotonsillectomy Same procedure as scheduled: Yes Indications: 23 Year old with the above diagnoses incompletely managed with medical therapy presents for the above procedure. Following discussion of the material risks benefits complications and alternatives, the parents elected to proceed. Surgeon: Rik Rushing Click Yes if Unassisted: Yes Anesthesia Type: General and Local Operative Notes Findings: Intact palate, single uvula, 2-3+ tonsils, 2+ adenoids Estimated Blood Loss (mL): 10 Procedure in detail: Following identification and confirmation of consent the patient was brought to the operating room suite and placed in the supine position. General endotracheal anesthesia was administered. A head wrap, shoulder roll, and mouth gag were placed and a red rubber catheter was inserted through the nostril and out the mouth to retract the soft palate. Partially obstructive adenoid tissue was ablated with suction electrocautery on a setting of 40, without injury to the eustachian tube orifices or choana. The left tonsil was retracted medially and suction electrocautery on a setting of 30 was used to dissect the tonsil in a subcapsular plane, followed by hemostasis with the same. This process was repeated on the right side with identical findings. The tonsillar fossae were superficially infiltrated bilaterally with 2% lidocaine 1 100,000 epinephrine. Mouth gag and rubber catheter were removed and the patient was extubated in the operating room and taken to the recovery room in stable condition without known complication. Complications: none Post-operative Condition: stable Disposition: same day surgery Plan for aftercare: Push fluids, alternate Tylenol and Advil every 3 hours for baseline pain control, oxycodone for breakthrough pain. Soft diet 2 full weeks, no heavy lifting or straining 2 weeks.
[2023-07-02 10:47] VITALS: BP 138/82; PULSE 78; RESP 19; TEMP 36.4; O2SAT 95
[2023-07-02] MEDS: LACTATED RINGERS 1,000 ML 42 ML IV (10:50)
[2023-07-02] MEDS: ACETAMINOPHEN IV 1,000 MG/100 ML VIAL 400 MG IV (11:10)
--- NOTE | 2023-07-02 11:11 | SUR.OPER ---
Supine on padded OR bed, head on pillow, arms padded and tucked at sides, legs uncrossed, safety belt at thigh, tape over blanket over lower legs .
[2023-07-02] MEDS: LIDOCAINE 2% W/EPI INJ 20 ML INJ (11:15)
[2023-07-02 11:35] VITALS: BP 133/80; PULSE 89; RESP 16; O2SAT 98
[2023-07-02 11:40] VITALS: BP 134/75; PULSE 95; RESP 16; TEMP 36.2
[2023-07-02 11:43] VITALS: BP 134/75; PULSE 85; RESP 16; TEMP 36.1; O2SAT 98
[2023-07-02 11:51] VITALS: BP 150/75; PULSE 86; RESP 16; TEMP 36.8; O2SAT 98
== END 2023-07-02 12:07 | disposition home or self-care (01) ==
PROVIDERS: PCP Family Medicine; Referring Provider Otolaryngology; Visit Provider Otolaryngology
PROC: (CPT 42821; principal; 2023-07-02 11:00)
DX: J35.01 Chronic tonsillitis (principal); G47.33 Obstructive sleep apnea (adult) (pediatric)
CPT/HCPCS: 42821; 81025; J0131; J1100; J1170; J2250; J2405; J2704; J3010

== ENCOUNTER → 2023-09-15 10:24 | Outpatient (CLI) | payer OTHER, SELFPAY ==
[2023-09-15 11:14] LABS: COVID-19 CEPHEID 4-PLEX PCR Negative (Negative); Influenza A - CEPHEID Flu A NEGATIVE (NEGATIVE); Influenza B - CEPHEID Flu B NEGATIVE (NEGATIVE); Respiratory Syncytial Virus Negative (Negative)
== END ==
PROVIDERS: PCP Family Medicine; Visit Provider Physician Assistant
DX: R05.1 Acute cough (principal)
CPT/HCPCS: 0241U

== ENCOUNTER → 2023-09-15 10:41 | Outpatient (CLI) | payer OTHER, SELFPAY ==
--- NOTE | 2023-09-15 10:44 | DI.RAD.S_ITS ---
PROCEDURE: XR CHEST 2V INDICATIONS: Wheezing worsening x 2 weeks TECHNIQUE: 2 views of the chest were acquired. COMPARISON: [facility], CR, XR CHEST 1V, 12/18/2022, 20:22. FINDINGS: Surgical changes and devices: None. Lungs and pleura: Lungs are clear. No pleural effusions or pneumothorax. Mediastinum: Mediastinal contours are normal. Heart size is normal. Bones and chest wall: No suspicious bony abnormalities. Soft tissues appear unremarkable. IMPRESSION: No acute cardiopulmonary abnormality is seen. Dictated by: Everardo Soria M.D. on 09/15/2023 at 15:50 Approved by: Everardo Soria M.D. on 09/15/2023 at 15:50
== END ==
PROVIDERS: PCP Family Medicine; Referring Provider Physician Assistant; Visit Provider Physician Assistant
DX: R06.2 Wheezing (principal); R05.1 Acute cough
CPT/HCPCS: 0241U; 71046

== ENCOUNTER 2024-01-14 21:58 | Emergency (ER) | payer OTHER, SELFPAY ==
[2024-01-14 22:04] VITALS: BP 163/111; PULSE 127; RESP 28; TEMP 37.1; O2SAT 97; BMI 36.8
--- NOTE | 2024-01-14 22:08 | DI.RAD.S_ITS ---
PROCEDURE: XR CHEST 1V INDICATIONS: Shortness of breath TECHNIQUE: One view of the chest was acquired. COMPARISON: [facility], , XR CHEST 2V, 09/15/2023, 11:00. FINDINGS: Surgical changes and devices: None. Lungs and pleura: Lungs are clear. No pleural effusions or pneumothorax. Mediastinum: Mediastinal contours appear normal. Heart size is normal. Bones and chest wall: No suspicious bony lesions. Overlying soft tissues appear unremarkable. IMPRESSION: No acute cardiopulmonary pathology. Dictated by: Emiliano Armando M.D. on 01/14/2024 at 23:01 Approved by: Emiliano Armando M.D. on 01/14/2024 at 23:02
[2024-01-14 22:58] LABS: Influenza A - CEPHEID Flu A NEGATIVE (NEGATIVE); Influenza B - CEPHEID Flu B NEGATIVE (NEGATIVE); Respiratory Syncytial Virus Negative (Negative)
[2024-01-14 23:17] LABS: COVID-19 CEPHEID 4-PLEX PCR Negative (Negative)
--- NOTE | 2024-01-14 23:29 | ED_ITS ---
HPI - URI/Sore Throat General Chief Complaint: Upper Respiratory Symptoms Stated Complaint: difficulty breathing Time Seen by Provider: 01/14/24 23:28 Source: patient Mode of arrival: Ambulatory History of Present Illness HPI Narrative: 23-year-old female with history of asthma, 4 days' duration of dry cough, increasing shortness of breath, ran out of her rescue albuterol inhaler, feeling further increased in shortness of breath. Some chest pain with coughing. No fevers or chills. No abdominal pain, nausea, diarrhea, black stools, red stools, painful urination. No exposure to persons with recent upper respiratory symptoms. Related Data Previous Rx's Medication Instructions Recorded norethindrone acetate 1 mg-ethinyl 1 tab PO DAILY #63 tabs 08/28/23 estradiol 20 mcg tablet (Loestrin) methylprednisolone 4 mg tablets in See Rx Instructions PO PER PKG DIR 09/15/23 a dose pack (Medrol (Albert)) #21 ea fluticasone 250 mcg-salmeterol 50 1 inh inhalation BID #60 ea 10/16/23 mcg/dose blistr powdr for inhalation (Advair Diskus) albuterol sulfate 90 mcg/actuation 2 puff PO Q4-6H PRN for wheezing 11/16/23 aerosol inhaler #8.5 grams lisdexamfetamine 50 mg capsule 50 mg PO QAM #30 caps 12/04/23 lisdexamfetamine 50 mg capsule 50 mg PO QAM #30 caps 12/04/23 (Vyvanse) lisdexamfetamine 50 mg capsule 50 mg PO QAM #30 caps 12/04/23 (Vyvanse) albuterol sulfate 90 mcg/actuation 2 puff inhalation Q4-6H PRN 12/16/23 aerosol inhaler shortness of breath or wheezing #6.7 grams albuterol sulfate 90 mcg/actuation 2 puff inhalation Q6H PRN 01/14/24 aerosol inhaler shortness of breath or wheezing #8.5 grams prednisone 20 mg tablet 40 mg (2 x 20 mg) PO DAILY 5 days 01/14/24 #10 tabs Allergies Allergy/AdvReac Type Severity Reaction Status Date / Time No Known Drug Allergies Allergy Verified 01/14/24 22:08 Review of Systems Review of Systems Narrative: per HPI Patient History Medical History (Updated 01/14/24 @ 23:43 by Dick Holbrook MD) Asthma Chronic tonsillitis Other headache syndrome Nasal turbinate hypertrophy Nasal obstruction Nasal septal deviation Chronic pansinusitis HTN (hypertension) Anxiety RONNA (obstructive sleep apnea) COVID-19 virus infection (04/23/21) Obstructive sleep apnea (adult) (pediatric) Attention deficit hyperactivity disorder (ADHD) No significant medical problems Surgical History Hx of appendectomy Hx of nasal septoplasty (07/31/22) Social History household members: family Smoking Status: Never smoker alcohol intake: current Smoking Status: Never smoker alcohol intake frequency: holidays/special occasions only Substance Use Type: marijuana Exam Narrative Exam Narrative: GENERAL: Well-developed patient, in mild distress. HEAD: Atraumatic. Normocephalic. EYES: Pupils equal round and reactive. Extraocular motions intact. No scleral icterus. No injection or drainage. ENT: Nose without bleeding, purulent drainage. Throat without erythema, tonsillar hypertrophy or exudate. Airway patent. NECK: Trachea midline. Non tender CARDIOVASCULAR: Regular rate and rhythm without murmurs, gallops, or rubs. RESPIRATORY: Speaks in full sentences, bilateral wheezes noted, no retractions intercostal or suprasternal. No crackles or rhonchi GASTROINTESTINAL: Abdomen soft, non-tender, nondistended. EXTREMITIES: No edema or joint tenderness. BACK: Nontender without deformity or crepitance. No flank tenderness. NEURO: AOx3. SKIN: No rash or erythema of visible areas Initial Vital Signs Initial Vital Signs: Vital Signs Temperature 98.7 F 01/14/24 22:04 Pulse Rate 127 H 01/14/24 22:04 Respiratory Rate 28 H 01/14/24 22:04 Blood Pressure 163/111 H 01/14/24 22:04 Pulse Oximetry 97 01/14/24 22:04 Oxygen Delivery Method Room Air 01/14/24 22:04 Course Orders Ordered: ED Orders 01/14/24 22:08 XR chest 1V Stat EKG-12 Lead Stat Measure peak expiratory flow ONCE RT Consult Eval and Treat NOW Discontinued Medications Prednisone (Prednisone 20 Mg Tablet) 60 mg PO NOW ONE Stop: 01/14/24 23:39 Last Admin: 01/14/24 23:46 Dose: 60 mg Documented By: LONNIE Vital Signs Vital signs: Vital Signs - 8 hr 01/15/24 00:45 Pulse Rate 116 H Respiratory Rate 17 Blood Pressure 141/98 H Pulse Oximetry 95 Oxygen Delivery Method Room Air MDM - URI/Sore Throat Lab Data Labs: Lab Results 01/14/24 Range/Units 20:11 SARS-CoV-2 (PCR) Negative (Negative) Influenza A (RT-PCR) Flu a negative (NEGATIVE) Influenza B (RT-PCR) Flu b negative (NEGATIVE) RSV (PCR) Negative (Negative) Imaging Data Chest x-ray: Radiologist's Impression: [address] [address] XRay Report Signed Patient: Gricel Alvarez MR#: [id number] : 2000 Acct:[id number] Age/Sex: 23 / F Date of Service: 01/14/24 Loc: ED Accession Number: [id number] Procedure: XR chest 1V Ordering Provider: Dick Holbrook MD PROCEDURE: XR CHEST 1V INDICATIONS: Shortness of breath TECHNIQUE: One view of the chest was acquired. COMPARISON: [facility], , XR CHEST 2V, 09/15/2023, 11:00. FINDINGS: Surgical changes and devices: None. Lungs and pleura: Lungs are clear. No pleural effusions or pneumothorax. Mediastinum: Mediastinal contours appear normal. Heart size is normal. Bones and chest wall: No suspicious bony lesions. Overlying soft tissues appear unremarkable. IMPRESSION: No acute cardiopulmonary pathology. Dictated by: Emiliano Armando M.D. on 01/14/2024 at 23:01 Approved by: Emiliano Armando M.D. on 01/14/2024 at 23:02 [facility] Narrative Medical decision making narrative: 23-year-old with history of asthma, recent days shortness of breath with cough, wheeze on exam, no hypoxia, serial SVN DuoNeb, p.o. prednisone, improved symptoms, discharged home on refill inhaler, also prednisone pulse 5 day course. Follow up with PCP advised. Improved, home with family Critical Care Time Critical Care Time Critical Care Time: Yes Total Critical Care Time: 35 Attestation: The high probability of a clinically significant, sudden or life threatening deterioration of the [35] system(s) required my full and direct attention, intervention and personal management. The aggregate critical care time was [] minutes. This time is in addition to time spent performing reported procedures but includes the following: [x] Data Review and interpretation [x] Patient assessment and monitoring of vital signs [x] Documentation [x] Medication orders and management Discharge Plan Departure Patient Disposition: Home Clinical Impression: Asthma exacerbation, Upper respiratory infection Activity Restrictions/Additional Instructions: Cough with increasing shortness of breath, some chest pain that improved after breathing treatments, wheezing on exam improved, no oxygen requirement, chest x- ray unremarkable. COVID swab negative, flu swabs negative. Oral steroid prednisone given, prescription sent for few more days to your pharmacy. Refill of your albuterol inhaler to use as well. Recheck symptoms with your regular provider in the next couple of days. Return to this/nearest emergency department for any change worsening symptoms or any concerns prior Prescriptions: New prednisone 20 mg tablet 40 mg PO DAILY 5 Days Qty: 10 0RF albuterol sulfate 90 mcg/actuation HFA aerosol inhaler 2 puff inhalation Q6H PRN (Reason: shortness of breath or wheezing) Qty: 8.5 0RF No Action norethindrone ac-eth estradiol [Loestrin 08/08 ()] 1-20 mg-mcg tablet 1 tab PO DAILY Qty: 63 3RF lisdexamfetamine 50 mg capsule 50 mg PO QAM Qty: 30 0RF lisdexamfetamine [Vyvanse] 50 mg capsule 50 mg PO QAM Qty: 30 0RF lisdexamfetamine [Vyvanse] 50 mg capsule 50 mg PO QAM Qty: 30 0RF methylprednisolone [Medrol (Albert)] 4 mg tablets,dose pack See Rx Instructions PO PER PKG DIR Qty: 21 0RF Rx Instructions: PO PER PKG DIR fluticasone propion-salmeterol [Advair Diskus] 250-50 mcg/dose blister with device 1 inh inhalation BID Qty: 60 3RF albuterol sulfate 90 mcg/actuation HFA aerosol inhaler 2 puff PO Q4-6H PRN (Reason: for wheezing) Qty: 8.5 0RF albuterol sulfate 90 mcg/actuation HFA aerosol inhaler 2 puff inhalation Q4-6H PRN (Reason: shortness of breath or wheezing) Qty: 6.7 0RF Referrals: Ana Sifuentes MD [Primary Care Provider] - Stand Alone Forms: Patient Portal/API
[2024-01-14] MEDS: predniSONE 20 MG TABLET 60 MG PO (23:46)
[2024-01-15 00:45] VITALS: BP 141/98; PULSE 116; RESP 17; O2SAT 95
== END 2024-01-15 00:47 | disposition home or self-care (01) ==
PROVIDERS: Emergency Provider Emergency Medicine; PCP Family Medicine
DX: J45.901 Unspecified asthma with (acute) exacerbation (principal); J06.9 Acute upper respiratory infection, unspecified; Z11.52 Encounter for screening for COVID-19
CPT/HCPCS: 0241U; 71045; 94640; 99283

== ENCOUNTER 2025-06-05 22:11 | Emergency (ER) | payer OTHER, SELFPAY ==
[2025-06-05 22:14] VITALS: BP 117/79; PULSE 130; RESP 25; TEMP 37.1; O2SAT 95; BMI 34.3
--- NOTE | 2025-06-05 22:18 | DI.RAD.S_ITS ---
PROCEDURE: XR CHEST 1V INDICATIONS: Shortness of breath TECHNIQUE: One view of the chest was acquired. COMPARISON: [facility], , XR CHEST 1V, 01/14/2024, 22:35. FINDINGS: Surgical changes and devices: None. Lungs and pleura: Lungs are clear. No pleural effusions or pneumothorax. Mediastinum: Mediastinal contours appear normal. Heart size is normal. Bones and chest wall: No suspicious bony lesions. Overlying soft tissues appear unremarkable. IMPRESSION: No acute cardiopulmonary abnormality is seen. Approved by: Nina Naranjo M.D.,Ph.D. on 06/06/2025 at 0:01
--- NOTE | 2025-06-05 22:18 | EKG_ITS ---
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
[2025-06-05 22:31] VITALS: PULSE 117; O2SAT 94
[2025-06-05 22:32] VITALS: BP 141/93; PULSE 115; RESP 24; O2SAT 94
[2025-06-05 22:33] VITALS: PULSE 127; RESP 24; O2SAT 95
[2025-06-05] MEDS: ALBUTEROL/IPRATROPIUM 3 ML AMPUL INH ×2 (22:33)
--- NOTE | 2025-06-05 22:45 | ED_ITS ---
HPI - Asthma <Leanne Collazo, DO - Last Filed: 06/06/25 16:06> General Chief Complaint: Asthma Stated Complaint: sob/chest pain Time Seen by Provider: 06/05/25 22:33 Source: patient Mode of arrival: Ambulatory Limitations: no limitations History of Present Illness HPI Narrative: 25-year-old female history of asthma, ADD on Vyvanse. Patient presents with a complaint of shortness of breath for the last 2 or 3 days she has notes some nasal congestion and recent upper respiratory symptoms consistent with a viral infection. Patient states it is typical that she will get an asthma flare when she has a cold. Patient does note a little bit of left-sided chest discomfort particularly with cough. She has has a little bit of whitish sputum but no hemoptysis noting green discoloration. She denies any fevers. She denies any nausea or vomiting no other GI or urinary symptoms no swelling in extremities. No syncope. She has been using an inhaler she used it twice today and then started using albuterol nebulizer with minimal improvement. She states her only other medications are Vyvanse. She denies any drug allergies. No tobacco, occasional alcohol she does sometimes smoke marijuana. Denies any other recreational drugs. Related Data Previous Rx's ?Medication ?Instructions ?Recorded methylprednisolone 4 mg tablets in See Rx Instructions PO PER PKG DIR 09/15/23 a dose pack (Medrol (Albert)) #21 ea norethindrone acetate 1 mg-ethinyl 1 tab PO DAILY #63 tabs 03/04/24 estradiol 20 mcg tablet (Loestrin) tiotropium bromide 1.25 2 puff inhalation DAILY #4 g travis 09/30/24 mcg/actuation mist for inhalation albuterol sulfate 1.25 mg/3 mL 1.25 mg (3 mL) inhalati on Q4H #75 12/30/24 solution for nebulization mL dextroamphetamine-amphetamine 5 mg 5 mg PO DAILY #30 t abs 04/07/25 tablet fluticasone 250 mcg-salmeterol 50 1 inh inhalation BID #60 ea 04/26/25 mcg/dose blistr powdr for inhalation (Advair Diskus) lisdexamfetamine 70 mg capsule 70 mg PO QAM #30 caps 1 albuterol sulfate 90 mcg/actuation 2 puff inhalation Q 4-6H PRN for 05/30/25 aerosol inhaler wheezing #8.5 grams prednisone 50 mg tablet 50 mg PO DAILY 3 days #3 tab s 06/06/25 Allergies Allergy/AdvReac Type Severity Reaction Status Date / Time No Known Drug Allergies Allergy Verified 06/05/25 22:15 Review of Systems <Leanne Collazo DO - Last Filed: 06/06/25 16:06> Review of Systems ROS Unobtainable: All systems reviewed & are unremarkable except as noted in HPI and below Patient History <Leanne Collazo DO - Last Filed: 06/06/25 16:06> Medical History Asthma Chronic tonsillitis Other headache syndrome Nasal turbinate hypertrophy Nasal obstruction Nasal septal deviation Chronic pansinusitis HTN (hypertension) Anxiety RONNA (obstructive sleep apnea) COVID-19 virus infection (04/23/21) Obstructive sleep apnea (adult) (pediatric) Attention deficit hyperactivity disorder (ADHD) No significant medical problems Surgical History Hx of appendectomy Hx of nasal septoplasty (07/31/22) Social History household members: family Smoking Status: Never smoker alcohol intake: current Smoking Status: Never smoker alcohol intake frequency: holidays/special occasions only Exam <DO Gilberto Joyce Last Filed: 06/06/25 16:06> Narrative Exam Narrative: GEN: well nourished, well appearing few, alert and oriented x 3, patient appears to be in moderate distress. HEENT: Atraumatic, pupils are equal round reactive to light, extraocular movements are intact, nares are clear, there is no conjunctival pallor. Throat is clear without any exudates, erythema, tonsillar enlargement or uvular deviation HEART: Tachycardic but regular rate and rhythm without murmur, clicks, rubs. Pulses are equal in upper and lower extremities LUNGS:Lungs patient has wheeze bilaterally expiratory, no rales, crackles, chest moves symmetrically, she has some mild tachypnea, no accessory muscle use. Speaks in full sentences. ABD:bowel sounds normal, soft, non-tender, no guarding, rebound, rigidity, no masses noted, no hepatosplenomegaly MSCL: Full range of motion, normal gait NEURO:CN 2-12 intact, sensation normal, Initial Vital Signs Initial Vital Signs: Vital Signs Temperature 98.8 F 06/05/25 22:14 Pulse Rate 130 H 06/05/25 22:14 Respiratory Rate 25 H 06/05/25 22:14 Blood Pressure 117/79 06/05/25 22:14 Pulse Oximetry 95 06/05/25 22:14 Oxygen Delivery Method Room Air 06/05/25 22:14 <Doron Fenton MD - Last Filed: 06/06/25 05:40> Initial Vital Signs Initial Vital Signs: Vital Signs Temperature 98.8 F 06/05/25 22:14 Pulse Rate 130 H 06/05/25 22:14 Respiratory Rate 25 H 06/05/25 22:14 Blood Pressure 117/79 06/05/25 22:14 Pulse Oximetry 95 06/05/25 22:14 Oxygen Delivery Method Room Air 06/05/25 22:14 Course <Leanne Collazo DO - Last Filed: 06/06/25 16:06> Orders Ordered: Discontinued Medications Albuterol (Albuterol 2.5 Mg/3 Ml Neb (Adult)) 5 mg INH NOW ONE Stop: 06/06/25 01:25 Last Admin: 06/06/25 01:26 Dose: 5 mg Documented By: LACIE Albuterol/Ipratropium (Albuterol/Ipratropium 3 Ml Ampul) 3 ml INH NOW ONE Stop: 06/05/25 22:27 Last Admin: 06/05/25 22:33 Dose: 3 ml Documented By: LACIE Albuterol/Ipratropium (Albuterol/Ipratropium 3 Ml Ampul) 3 ml INH NOW ONE Stop: 06/05/25 22:28 Last Admin: 06/05/25 22:33 Dose: 3 ml Documented By: LACIE Magnesium Sulfate (Magnesium Sulfate) 2 gm in 50 mls @ 25 mls/hr IV NOW ONE Stop: 06/06/25 03:51 Last Infusion: 06/06/25 02:26 Dose: Infused Documented By: LAMBERT Co-signed By: LONNIE Admin: 06/06/25 01:59 Dose: 25 mls/hr Documented By: LAMBERT Co-signed By: NIRANJAN Methylprednisolone (Methylprednisolone Succ 125 Mg/2 Ml Vial) 125 mg IV NOW ONE Stop: 06/05/25 22:34 Last Admin: 06/05/25 22:50 Dose: 125 mg Documented By: MILARGOS Vital Signs Vital signs: Vital Signs - 8 hr 06/05/25 22:14 06/05/25 22:31 06/05/25 22:32 Temperature 98.8 F Pulse Rate 130 H 117 H Respiratory Rate 25 H Blood Pressure 117/79 141/93 H Pulse Oximetry 95 94 Oxygen Delivery Method Room Air Oxygen Flow Rate Fraction of Inspired Oxygen 06/05/25 22:32 06/05/25 22:33 06/05/25 23:00 Temperature Pulse Rate 115 H 127 H Respiratory Rate 24 24 Blood Pressure 146/80 H Pulse Oximetry 94 95 Oxygen Delivery Method Room Air Oxygen Flow Rate 0 Fraction of Inspired Oxygen 06/05/25 23:00 06/05/25 23:30 06/05/25 23:30 Temperature Pulse Rate 130 H 112 H Respiratory Rate 23 22 Blood Pressure 141/86 H Pulse Oximetry 94 94 Oxygen Delivery Method Oxygen Flow Rate Fraction of Inspired Oxygen 06/06/25 00:00 06/06/25 00:00 06/06/25 00:06 Temperature Pulse Rate 119 H Respiratory Rate 25 H Blood Pressure 152/95 H 144/90 H Pulse Oximetry 94 Oxygen Delivery Method Oxygen Flow Rate Fraction of Inspired Oxygen 06/06/25 00:06 06/06/25 00:30 06/06/25 00:30 Temperature Pulse Rate 124 H 115 H Respiratory Rate 20 21 Blood Pressure 145/91 H Pulse Oximetry 94 93 Oxygen Delivery Method Oxygen Flow Rate Fraction of Inspired Oxygen 06/06/25 01:00 06/06/25 01:00 06/06/25 01:26 Temperature Pulse Rate 123 H 143 H Respiratory Rate 27 H 30 H Blood Pressure 162/86 H Pulse Oximetry 92 92 Oxygen Delivery Method Room Air Oxygen Flow Rate 0 Fraction of Inspired Oxygen 06/06/25 01:30 06/06/25 02:01 06/06/25 02:30 Temperature Pulse Rate 120 H 148 H 127 H Respiratory Rate 22 20 33 H Blood Pressure Pulse Oximetry 93 92 Oxygen Delivery Method Oxygen Flow Rate Fraction of Inspired Oxygen 06/06/25 02:45 06/06/25 03:00 06/06/25 03:26 Temperature Pulse Rate 124 H 123 H Respiratory Rate 22 31 H Blood Pressure 160/78 H Pulse Oximetry 93 92 Oxygen Delivery Method Nasal Cannula Oxygen Flow Rate 2 Fraction of Inspired Oxygen 28 <Doron Fenton MD - Last Filed: 06/06/25 05:40> Orders Ordered: Discontinued Medications Albuterol (Albuterol 2.5 Mg/3 Ml Neb (Adult)) 5 mg INH NOW ONE Stop: 06/06/25 01:25 Last Admin: 06/06/25 01:26 Dose: 5 mg Documented By: LACIE Albuterol/Ipratropium (Albuterol/Ipratropium 3 Ml Ampul) 3 ml INH NOW ONE Stop: 06/05/25 22:27 Last Admin: 06/05/25 22:33 Dose: 3 ml Documented By: LACIE Albuterol/Ipratropium (Albuterol/Ipratropium 3 Ml Ampul) 3 ml INH NOW ONE Stop: 06/05/25 22:28 Last Admin: 06/05/25 22:33 Dose: 3 ml Documented By: LACIE Magnesium Sulfate (Magnesium Sulfate) 2 gm in 50 mls @ 25 mls/hr IV NOW ONE Stop: 06/06/25 03:51 Last Infusion: 06/06/25 02:26 Dose: Infused Documented By: LAMBERT Co-signed By: LONNIE Admin: 06/06/25 01:59 Dose: 25 mls/hr Documented By: LAMBERT Co-signed By: NIRANJAN Methylprednisolone (Methylprednisolone Succ 125 Mg/2 Ml Vial) 125 mg IV NOW ONE Stop: 06/05/25 22:34 Last Admin: 06/05/25 22:50 Dose: 125 mg Documented By: MILAGROS Vital Signs Vital signs: Vital Signs - 8 hr 06/05/25 22:14 06/05/25 22:31 06/05/25 22:32 Temperature 98.8 F Pulse Rate 130 H 117 H Respiratory Rate 25 H Blood Pressure 117/79 141/93 H Pulse Oximetry 95 94 Oxygen Delivery Method Room Air Oxygen Flow Rate Fraction of Inspired Oxygen 06/05/25 22:32 06/05/25 22:33 06/05/25 23:00 Temperature Pulse Rate 115 H 127 H Respiratory Rate 24 24 Blood Pressure 146/80 H Pulse Oximetry 94 95 Oxygen Delivery Method Room Air Oxygen Flow Rate 0 Fraction of Inspired Oxygen 21 06/05/25 23:00 06/05/25 23:30 06/05/25 23:30 Temperature Pulse Rate 130 H 112 H Respiratory Rate 23 22 Blood Pressure 141/86 H Pulse Oximetry 94 94 Oxygen Delivery Method Oxygen Flow Rate Fraction of Inspired Oxygen 06/06/25 00:00 06/06/25 00:00 06/06/25 00:06 Temperature Pulse Rate 119 H Respiratory Rate 25 H Blood Pressure 152/95 H 144/90 H Pulse Oximetry 94 Oxygen Delivery Method Oxygen Flow Rate Fraction of Inspired Oxygen 06/06/25 00:06 06/06/25 00:30 06/06/25 00:30 Temperature Pulse Rate 124 H 115 H Respiratory Rate 20 21 Blood Pressure 145/91 H Pulse Oximetry 94 93 Oxygen Delivery Method Oxygen Flow Rate Fraction of Inspired Oxygen 06/06/25 01:00 06/06/25 01:00 06/06/25 01:26 Temperature Pulse Rate 123 H 143 H Respiratory Rate 27 H 30 H Blood Pressure 162/86 H Pulse Oximetry 92 92 Oxygen Delivery Method Room Air Oxygen Flow Rate 0 Fraction of Inspired Oxygen 21 06/06/25 01:30 06/06/25 02:01 06/06/25 02:30 Temperature Pulse Rate 120 H 148 H 127 H Respiratory Rate 22 20 33 H Blood Pressure Pulse Oximetry 93 92 Oxygen Delivery Method Oxygen Flow Rate Fraction of Inspired Oxygen 06/06/25 02:45 06/06/25 03:00 06/06/25 03:26 Temperature Pulse Rate 124 H 123 H Respiratory Rate 22 31 H Blood Pressure 160/78 H Pulse Oximetry 93 92 Oxygen Delivery Method Nasal Cannula Oxygen Flow Rate 2 Fraction of Inspired Oxygen 28 MDM - Asthma <Leanne Collazo, - Last Filed: 06/06/25 16:06> [facility] Narrative Medical decision making narrative: 25-year-old female history of asthma notes a recent viral upper respiratory infection that is seems to kick off her asthma. She has used her albuterol inhaler as well as nebulizer at home without improvement. Has not noted a little bit of left-sided chest discomfort with cough today she has noticed white sputum. No fevers. We will obtain chest x-ray to evaluate for any pneumonia. Chest x-ray EKG shows sinus tachycardia rate 108, AR 136 QRS is 78 QTC of [address]- elevation depression noted. Patient received steroids and nebs, Patient signed out to Dr. Lee. <Doron Fenton MD - Last Filed: 06/06/25 05:40> Imaging Data Chest x-ray: Attestation: I personally reviewed and interpreted this imaging study as follows: (Unremarkable. No acute disease) MDM Narrative Medical decision making narrative: 25-year-old female history of asthma notes a recent viral upper respiratory infection that is seems to kick off her asthma. She has used her albuterol inhaler as well as nebulizer at home without improvement. Has not noted a little bit of left-sided chest discomfort with cough today she has noticed white sputum. No fevers. We will obtain chest x-ray to evaluate for any pneumonia. Chest x-ray EKG shows sinus tachycardia rate 108, AR 136 QRS is 78 QTC of [address]- elevation depression noted. Patient received steroids and nebs, Patient signed out to Dr. Fenton. 23:00 Patient care signed out to me at the change of shift by Dr. Collazo with response to therapy and disposition pending. This is a 25-year-old female patient with a history of asthma and ADHD who presents with cough and congestion with worsening shortness of breath and wheezing over the last 3 days with no fever or chills. To this point her chest x-ray is unremarkable. She has received 2 albuterol treatments and Solu-Medrol 01:25 Patient had improved but is now having more wheezing and shortness of breath. We will administer 2 more albuterol nebulizer treatments. Patient tends to have significant tachycardia with the albuterol. 01:55 RT reported that her heart rate went up to 145 so he discontinued the 2nd albuterol nebulizer part way through. Patient will receive IV magnesium sulfate. 03:00 Patient is feeling better and moving air better. Lungs have less wheezing and better air movement. She will be discharged home with a prednisone burst for 3 days and continue her home nebulizer breathing treatments. Discharge Plan Departure Patient Disposition: Home Clinical Impression: Asthma exacerbation Instructions: Asthma -- Adult Activity Restrictions/Additional Instructions: Plan: Hydration and rest. Continue home inhaler and nebulizer treatments. Prescription for 3 day burst of prednisone. Follow up with your doctor for reassessment within the next 2-3 days. Return to the ER if worse Prescriptions: New prednisone 50 mg tablet 50 mg PO DAILY 3 Days Qty: 3 0RF No Action norethindrone ac-eth estradiol [Loestrin 1/20 (21)] 1-20 mg-mcg tablet 1 tab PO DAILY Qty: 63 3RF tiotropium bromide 1.25 mcg/actuation mist 2 puff inhalation DAILY Qty: 4 3RF albuterol sulfate 1.25 mg/3 mL solution for nebulization 1.25 mg inhalation Q4H Qty: 75 2RF dextroamphetamine-amphetamine 5 mg tablet 5 mg PO DAILY Qty: 30 0RF methylprednisolone [Medrol (Albert)] 4 mg tablets,dose pack See Rx Instructions PO PER PKG DIR Qty: 21 0RF Rx Instructions: PO PER PKG DIR fluticasone propion-salmeterol [Advair Diskus] 250-50 mcg/dose blister with device 1 inh inhalation BID Qty: 60 3RF lisdexamfetamine 70 mg capsule 70 mg PO QAM Qty: 30 0RF albuterol sulfate 90 mcg/actuation HFA aerosol inhaler 2 puff inhalation Q4-6H PRN (Reason: for wheezing) Qty: 8.5 0RF Referrals: Ana Sifuentes MD [Primary Care Provider, Family Practice] Stand Alone Forms: Patient Portal/API
[2025-06-05] MEDS: methylPREDNISolone succ 125 MG/2 ML VIAL IV (22:50)
[2025-06-05 23:00] VITALS: BP 146/80; PULSE 130; RESP 23; O2SAT 94
[2025-06-05 23:30] VITALS: BP 141/86; PULSE 112; RESP 22; O2SAT 94
[2025-06-06] VITALS (11 sets, daily range): BP systolic 144–162; BP diastolic 78–95; PULSE 115–148; RESP 20–33; O2SAT 92–94
[2025-06-06] MEDS: ALBUTEROL 2.5 MG/3 ML NEB (ADULT) 5 MG INH (01:26)
[2025-06-06] MEDS: MAGNESIUM SULFATE 2 GM/50 ML PIGGYBACK IV (01:59)
== END 2025-06-06 03:30 | disposition home or self-care (01) ==
PROVIDERS: Emergency Provider Emergency Medicine; PCP Family Medicine
DX: J45.901 Unspecified asthma with (acute) exacerbation (principal); R07.9 Chest pain, unspecified
CPT/HCPCS: 36415; 71045; 93005; 93010; 94640; 96365; 96375; 99284; J2919; J3475; J7613